=== PATIENT | female | born 1945 | race Caucasian/White ===

== ENCOUNTER → 2018-02-18 | Outpatient (CLI) | payer OTHER | LOC: BRMIMAGING 13:40 | PROVIDERS: ATTEND Family Medicine | DX: M19.041 Primary osteoarthritis, right hand (principal) | CPT/HCPCS: 73130-PO ==

== ENCOUNTER → 2018-03-28 | Outpatient (CLI) | payer OTHER | LOC: SBRMNEURO 23:13 | PROVIDERS: ATTEND Physician Assistant Medical | DX: G47.33 Obstructive sleep apnea (adult) (pediatric) (principal) ==

== ENCOUNTER → 2018-11-15 | Outpatient (CLI) | payer OTHER | LOC: BRMIMAGING 08:50 | PROVIDERS: ATTEND Family Medicine | DX: M12.841 Other specific arthropathies, not elsewhere classified, right hand (principal); M12.842 Other specific arthropathies, not elsewhere classified, left hand | CPT/HCPCS: 73130-PO ==